=== PATIENT | female | born 1970 | race African-American/Black ===

== ENCOUNTER 2016-12-11 18:04 | Inpatient (IN) | payer OTHER ==
[~2016-12-11] VITALS: Ht 170.2 cm; Wt 76.5 kg
[2016-12-11] MEDS ORDERED: PANTOPRAZOLE SO40 MG PO (19:53)
[2016-12-11] MEDS ORDERED: RABEPRAZOLE SOD20 MG PO (19:53)
[2016-12-11] MEDS ORDERED: ERGOCALCIF50000 UNIT PO (19:53)
[2016-12-11] MEDS ORDERED: CIPROFLOXACIN500 M1 PO (19:54)
[2016-12-11] MEDS ORDERED: KETOTIFEN FUMARA5 M1 BOTH EYES (19:55)
[2016-12-11] MEDS ORDERED: NEOMYCIN-POLYMY10 M1 BOTH EARS (19:55)
[2016-12-11] MEDS ORDERED: TRIAMTERENE-HC1 EACH PO (19:55)
[2016-12-11 20:40] LABS: HEMATOCRIT 41.5 % (36.0-46.0); MCH 27.9 PG (29.0-34.0); MCHC 32.8 G/DL (30.0-36.0); MCV 85.2 FL (83-99); MEAN PLAT.VOLUME 9.1 uM^3 (9.5-12.4); PLATELET COUNT 299 K/uL (156-360); RBC DIS.WIDTH-CV 12.4 % (11.8-14.6); RBC DIS.WIDTH-SD 38.1 % (39-53); RED BLOOD COUNT 4.87 M/uL (3.80-5.20); WHITE BLOOD COUNT 7.9 K/uL (4.1-10.2)
[2016-12-11 20:51] LABS: CHLORIDE 98 mEq/L (99-109); POTASSIUM 3.5 mEq/L (3.7-5.4); SODIUM 136 mEq/L (136-147)
[2016-12-11 20:53] LABS: GLUCOSE 110 mg/dL (70-99)
[2016-12-11 20:55] LABS: ANION GAP 13 MEQ/L (2-14)
[2016-12-11 20:56] LABS: SERUM ETHYL ALCOHOL < 10 mg/dL
[2016-12-11 20:57] LABS: GFR ESTIMATE (CALCULATED) 48 mL/min/
[2016-12-11 20:58] LABS: UREA NITROGEN (BUN) 14 mg/dL (9-23)
[2016-12-11 21:12] LABS: AMPHETAMINE NEGATIVE (500 ng/mL); BARBITURATES NEGATIVE (200 ng/mL); BENZODIAZEPINES NEGATIVE (150 ng/mL); COCAINE NEGATIVE (150 ng/mL); INTERNAL CONTROLS VALID? YES; METHADONE NEGATIVE (200 ng/mL); METHAMPHETAMINE NEGATIVE (500 ng/mL); OPIATES (MORPHINE) NEGATIVE (100 ng/mL); OXYCODONE NEGATIVE (100 ng/mL); PHENCYCLIDINE NEGATIVE (25 ng/mL); PROPOXYPHENE NEGATIVE (300 ng/mL); THC CANNABINOIDS NEGATIVE (50 ng/mL); TRICYCLIC ANTIDEPRESSANTS NEGATIVE (300 ng/mL)
[2016-12-12 12:55] LABS: ADD MIUA? YES; BILIRUBIN NEGATIVE; BLOOD LARGE; COLOR STRAW ((YELLOW)); GLUCOSE (STRIP) NEGATIVE; KETONES 5; LEUKOCYTES NEGATIVE; NITRITE NEGATIVE; PROTEIN (STRIP) NEGATIVE; SPECIFIC GRAVITY 1.008 (1.000-1.030); UROBILINOGEN 0.2 MG/DL (0.2-1.0)
[2016-12-12 12:58] LABS: BACTERIA NONE SEEN /HPF; EPITHELIAL CELLS RARE /HPF; MUCUS NONE SEEN /LPF; RED BLOOD CELLS 0-5 /HPF (0-5); UCUL ADDED? NO; WHITE BLOOD CELLS 0-5 /HPF (0-5)
[2016-12-12 18:30] VITALS: BP 103/73
[2016-12-12] MEDS ORDERED: MAXALT10 MG PO (20:53)
[2016-12-13 07:35] VITALS: BP 124/85
[2016-12-13 15:13] VITALS: BP 122/74
[2016-12-14 07:41] VITALS: BP 119/86
[2016-12-14 15:43] VITALS: BP 145/53
[2016-12-15 07:36] VITALS: BP 129/87
[2016-12-15] MEDS ORDERED: OLANZAPINE10 MG PO (09:36)
== END 2016-12-15 13:00 | disposition home or self-care (01) | DRG 885 ==
LOC: EME 18:04 → 1WEST 12-12 14:38 → EDOF 12-12 14:38 → 1WEST 12-12 17:55
PROVIDERS: Emergency Medicine
DX: F31.9 Bipolar disorder, unspecified (principal); F17.210 Nicotine dependence, cigarettes, uncomplicated; R45.1 Restlessness and agitation; Z88.2 Allergy status to sulfonamides
CPT/HCPCS: 80048; 81003; 84702; 85027; 90837; 97165 GO; 99281; 99285; G0480; J1630; J2060; J3486